=== PATIENT | male | born 1945 | race Caucasian/White ===

== ENCOUNTER 2020-09-01 09:54 | Outpatient (CLI) | payer MEDICARE, SELFPAY ==
[2020-09-01 10:14] VITALS: BMI 25.2
--- NOTE | 2020-09-01 10:25 | NMCV_ITS ---
NM jerad perf SPECT r/s* [id number] Reese Dillon Age: 74 Gender: M : 1945 Exam Date: 09/01/2020 11:21 Ordering Phys: Abigail Chavez MD ([email or web address]) Technologist: WOODY Downing Exam Location: [facility] Indications: PREPROCEDURAL CARDIOVASCULAR EXAM STRESS TEST Please see separate stress test report in [facility] for full findings IMAGE PROTOCOL Rest/Stress 1 Lexiscan Day Radiopharmaceutical Dose (mCi) Administration Site Administered by Rest: Tc-99m 11.0 IV WOODY Downing Sestamibi Stress:Tc-99m 32.2 IV WOODY Pavon Sestamibi Rest: 01-Sep-2020 60 Discovery 630 Stress: 01-Sep-2020 30 Discovery 630 0.4mg Lexiscan. Supine position only as patient was unable to lay prone. SPECT RESULTS Technical Quality: Excellent Raw Data Analysis: Normal Image Corrections: No attenuation or motion correction applied Summed Stress Score: 4 Summed Rest Score: 1 Summed Difference Score: 3 PERFUSION FINDINGS Small sized perfusion abnormality of mild severity of apical septal wall on rest images with mild reversibility in apical anterior apical lateral wall on stress images. FUNCTIONAL RESULTS (calculated via Gated SPECT) Stress Image LV EF (%): 67 Stress EDV (mL):87 TID: 1.07 Stress ESV (mL):29 FUNCTIONAL FINDINGS: The left ventricle is normal in size. Transient Ischemia Dilatation of 1.1. There is normal left ventricular systolic function. The left ventricular ejection fraction is normal with a value of 67%. There is normal left ventricular wall thickening with no regional wall motion abnormality. Normal end-diastolic end-systolic volumes. IMPRESSIONS 1. Small sized reversible perfusion abnormality of mild severity of apical septal, apical anterior apical lateral carvalho. 2. This likely represents small area of ischemia in left anterior descending artery territory. 3. Overall left ventricular systolic function is normal without regional wall motion abnormalities. 4. The left ventricular ejection fraction is normal with a value of 67%. 5. No prior similar studies to compare. Abigail Chavez MD (Electronically Signed) Final Date: 04 Sep 2020 18:06 S
--- NOTE | 2020-09-01 10:25 | ECG_ITS ---
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 Interpretive Statements NAME OF STUDY: LEXISCAN SESTAMIBI STRESS TEST INDICATION: Chest Pain PROCEDURE: At the baseline, the blood pressure was 177/77 mmHg with a heart rate of 46 bpm. The electrocardiogram showed sinus bradycardia with first-degree AV block, right axis deviation, right bundle branch block. The Lexiscan was infused over a period of 20 seconds. A total of 0.4 milligrams of Lexiscan was infused. The stress phase was continued for a total of 5 minutes. Heart rate at the end of the stress phase was 66 bpm with a blood pressure of 141/69 mmHg. The EKG at the peak infusion revealed sinus rhythm with no significant ST-T wave changes. Sestamibi was injected 20 seconds after the Lexiscan infusion. Blood pressure at the end of the recovery phase was 176/82 mmHg with a heart rate of 74 beats per minute. CONCLUSION: 1. No significant EKG changes with the LexiScan infusion 2. No LexiScan induced chest pain or cardiac arrhythmia. 3. Normal blood pressure and heart rate response. 4. Sestamibi/sestamibi perfusion scan pending; see separate report. Electronically Signed On 09-05-2020 18:25:39 CDT by Abigail Chavez M.D. [id number]
[2020-09-01 12:26] VITALS: BP 115/73; PULSE 78
[2020-09-01] MEDS: regadenoson 0.4 Mg/5 ml Syringe IVP (12:27)
== END 2020-09-01 09:55 | disposition home or self-care (01) ==
LOC: CDL 10:00
PROVIDERS: Visit Provider Internal Medicine Cardiovascular Disease
DX: R07.9 Chest pain, unspecified (principal)
CPT/HCPCS: 78452; 93017; A9500; J2785